=== PATIENT | male | born 1970 | race Two or more races ===

== ENCOUNTER 2017-05-29 20:46 | Emergency (ER) | payer BC ==
[~2017-05-29] VITALS: Ht 185.4 cm; Wt 138.3 kg
[2017-05-29 22:51] LABS: BASO % 0 % (0-3); EOS % 4 % (0-3); HEMATOCRIT 44.5 % (39.0-53.0); HEMOGLOBIN 15.7 g/dL (13.0-17.5); LYMPH # 3.2 x10^3/uL (1.0-4.8); LYMPH % 39 % (24-48); MEAN CORPUSCULAR HEMOGLOBIN 33 pg (25-35); MEAN CORPUSCULAR HGB CONC 35 g/dL (31-37); MEAN CORPUSCULAR VOLUME 94 fL (79-100); MONO % 9 % (0-9); NEUT % 48 % (31-73); PLATELET COUNT 201 x10^3/uL (140-400); RED BLOOD COUNT 4.76 x10^6/uL (4.30-5.70); WHITE BLOOD COUNT 8.1 x10^3/uL (4.0-11.0)
[2017-05-29 23:05] LABS: CALCIUM 9.1 mg/dL (8.5-10.1); CREATININE 0.9 mg/dL (0.7-1.3); GFR 91.7; POTASSIUM 4.5 mmol/L (3.5-5.1)
--- NOTE | 2017-05-30 00:06 | RAD ---
Left lower extremity venous Doppler: Reason for examination: Dropped a tire on his leg with pain and swelling. The left lower extremity venous system was evaluated from the common femoral and greater saphenous veins distally to the calf veins with grayscale imaging, color-flow and spectral analysis. The venous system shows normal blood flow without venous thrombosis. There is normal response of the venous system to compression and augmentation. Note is made of several lymph nodes in the groin measuring up to 3.9 cm in greatest dimension. There is a 3.9 x 1.9 x 2.8 cm popliteal fossa cyst. In the area of clinical concern anterior medially in the proximal lower leg, there is a heterogeneous fluid collection consistent with a hematoma measuring 3.1 x 1.7 x 0.9 cm. IMPRESSION: No deep venous thrombosis in the left lower extremity. Hematoma in the area of clinical concern in the proximal lower leg. 3.9 x 1.9 x 2.8 cm popliteal cyst. Several lymph nodes in the groin. Electronically signed by: Emilee Holder MD (05/30/2017 12:03 AM) [facility]
[2017-05-30 00:15] VITALS: BP 116/58
--- NOTE | 2017-05-30 01:57 | ED.ADGEN ---
Past Medical History Past Medical History: Diabetes-Type II, GERD, High Cholesterol Past Surgical History: Other Additional Past Surgical Histo: circumcision 04/21/2017 Alcohol Use: Rarely Drug Use: None Adult General Chief Complaint Chief Complaint: LOWEREXTREMITY INJURY HPI HPI Patient is a 46 year old man, history of type 2 diabetes mellitus, obesity, high cholesterol, who presents to the emergency department with a complaint of left lower extremity pain and swelling. Patient was referred to the emergency department after evaluation in urgent care, with concern for possible DVT. Patient states he was struck in the leg by a car tire that fell over 2 weeks ago , states that he's noted some swelling and bruising the area since then, and that he noted increased swelling over the last several days. Patient states he is having pain behind his knee, and on the medial aspect of the left lower extremity. Patient states he also feels "just sort of weak and tired sometimes" , states he's been taking his insulin and other medications as directed by his primary care provider and that his sugars are running in the 200s. He denies any fevers or chills, any history of DVT or PE in himself or family members, any shortness of breath or chest pain, any cough, any focal weakness, numbness, tingling other injuries or complaints. He has not taken any medication for pain prior to coming to the ED. Review of Systems Review of Systems Constitutional: Denies fever or chills. [] Eyes: Denies change in visual acuity. [] HENT: Denies nasal congestion or sore throat. [] Respiratory: Denies cough or shortness of breath. [] Cardiovascular: Denies chest pain or edema. [] GI: Denies abdominal pain, nausea, vomiting, bloody stools or diarrhea. [] : Denies dysuria. [] Musculoskeletal: Denies back pain or joint pain. []Complaining of pain in the left lower extremity, with ecchymosis and swelling. Integument: Denies rash. [] Neurologic: Denies headache, focal weakness or sensory changes. [] Endocrine: Denies polyuria or polydipsia. [] Lymphatic: Denies swollen glands. [] Psychiatric: Denies depression or anxiety. [] Allergies Allergies Allergies Coded Allergies Type Severity Reaction Last Updated Verified Penicillins Allergy Unknown 05/29/17 Yes Physical Exam Physical Exam Constitutional: Well developed, well nourished, no acute distress, non-toxic appearance. [] HENT: Normocephalic, atraumatic, bilateral external ears normal, oropharynx moist, no oral exudates, nose normal. [] Eyes: PERRLA, EOMI, conjunctiva normal, no discharge. [] Neck: Normal range of motion, no tenderness, supple, no stridor. [] Cardiovascular:Heart rate regular rhythm, no murmur [] Lungs & Thorax: Bilateral breath sounds clear to auscultation , no wheezing, rhonchi, rales. No chest or crepitus or tenderness.[] Abdomen: Bowel sounds normal, soft, no tenderness, no rebound, rigidity, no guarding, obese, no masses, no pulsatile masses. [] Skin: Warm, dry, no erythema, no rash. [] Back: No tenderness, no CVA tenderness. [] Extremities: Patient with tenderness palpation in the posterior fossa, with mild fullness noted, consistent with possible Reed cyst, patient noted to have area of tenderness to palpation in the medial anterior calf region, with discoloration, consistent with ecchymosis, and chronic venous stasis changes, mild tenderness and fluid collection noted, no evidence of abscess formation or induration,, no cyanosis, no clubbing, ROM intact, no edema. [Right lower extremity is nontender, no edema noted, patient with small non-influent lesions noted consistent with likely insect bites, patient states that "either Crawford might bites", and that he cannot resist "scratching". No evidence of infection. Neurologic: Alert and oriented X 3, normal motor function, normal sensory function, no focal deficits noted. [] Psychologic: Affect normal, judgement normal, mood normal. [] Current Patient Data Vital Signs Vital Signs Date Time Temp Pulse Resp B/P (MAP) Pulse Ox O2 Delivery O2 Flow Rate FiO2 05/30/17 00:15 90 18 116/58 (77) 96 Room Air 05/29/17 21:55 98.3 98.3 Lab Values Laboratory Tests Test 05/29/17 22:40 White Blood Count 8.1 x10^3/uL (4.0-11.0) Red Blood Count 4.76 x10^6/uL (4.30-5.70) Hemoglobin 15.7 g/dL (13.0-17.5) Hematocrit 44.5 % (39.0-53.0) Mean Corpuscular Volume 94 fL (79-100) Mean Corpuscular Hemoglobin 33 pg (25-35) Mean Corpuscular Hemoglobin Concent 35 g/dL (31-37) Red Cell Distribution Width 13.0 % (11.5-14.5) Platelet Count 201 x10^3/uL (140-400) Neutrophils (%) (Auto) 48 % (31-73) Lymphocytes (%) (Auto) 39 % (24-48) Monocytes (%) (Auto) 9 % (0-9) Eosinophils (%) (Auto) 4 % (0-3) H Basophils (%) (Auto) 0 % (0-3) Neutrophils # (Auto) 3.9 x10^3uL (1.8-7.7) Lymphocytes # (Auto) 3.2 x10^3/uL (1.0-4.8) Monocytes # (Auto) 0.7 x10^3/uL (0.0-1.1) Eosinophils # (Auto) 0.3 x10^3/uL (0.0-0.7) Basophils # (Auto) 0.0 x10^3/uL (0.0-0.2) Sodium Level 136 mmol/L (136-145) Potassium Level 4.5 mmol/L (3.5-5.1) Chloride Level 101 mmol/L (98-107) Carbon Dioxide Level 27 mmol/L (21-32) Anion Gap 8 (6-14) Blood Urea Nitrogen 10 mg/dL (8-26) Creatinine 0.9 mg/dL (0.7-1.3) Estimated GFR (Cockcroft-Gault) 91.7 Glucose Level 345 mg/dL (70-99) H Calcium Level 9.1 mg/dL (8.5-10.1) Laboratory Tests 05/29/17 22:40 Laboratory Tests 05/29/17 22:40 EKG EKG Not indicated.[] Radiology/Procedures Radiology/Procedures [][facility] [address] [place], [place] [id number] IMAGING REPORT Signed PATIENT: LISBETH LAY ACCOUNT: [id number] : 1970 LOCATION: ER AGE: 46 SEX: M EXAM STATUS: REG ER ORD. PHYSICIAN: FREDRICK DELGADILLO DO REASON: Swelling/pain s/p injury PROCEDURE: VENOUS LOWER EXTREMITY LEFT Left lower extremity venous Doppler: Reason for examination: Dropped a tire on his leg with pain and swelling. The left lower extremity venous system was evaluated from the common femoral and greater saphenous veins distally to the calf veins with grayscale imaging, color-flow and spectral analysis. The venous system shows normal blood flow without venous thrombosis. There is normal response of the venous system to compression and augmentation. Note is made of several lymph nodes in the groin measuring up to 3.9 cm in greatest dimension. There is a 3.9 x 1.9 x 2.8 cm popliteal fossa cyst. In the area of clinical concern anterior medially in the proximal lower leg, there is a heterogeneous fluid collection consistent with a hematoma measuring 3.1 x 1.7 x 0.9 cm. IMPRESSION: No deep venous thrombosis in the left lower extremity. Hematoma in the area of clinical concern in the proximal lower leg. 3.9 x 1.9 x 2.8 cm popliteal cyst. Several lymph nodes in the groin. Electronically signed by: Emilee Brito MD (05/30/2017 12:03 AM) [facility] DICTATED and SIGNED BY: EMILEE BRITO MD DATE: 05/29/17 0266 CC: [facility]; FREDRICK DELGADILLO DO ~ Course & Med Decision Making Course & Med Decision Making Pertinent Labs and Imaging studies reviewed. (See chart for details) Ultrasound of the left lower extremity order to assess for DVT, this was unremarkable. Patient received basic laboratory studies in the ED based and complaints of generalized fatigue, which revealed hyperglycemia with a glucose of 345, but no left or abnormalities other concerning findings. I did discuss these findings with patient, I believe based on examination he is exhibiting some signs of neuropathy which is more of a chronic condition consistent with his diabetes, which may be causing some of the discomfort that brought to the ED today, additionally he is noted to have a popliteal cyst in the area of discomfort, and evidence of hematoma in the area where he is complaining of discomfort in the anterior and medial aspect of the lower leg. No evidence of concerning findings identified, which was discussed with patient in detail. Patient encouraged to follow-up with his primary care provider for review of his medication regimen and for potential changes in additional assessment as needed, we did discuss concerning symptoms that prompt return to the ED as well. Patient to stay well-hydrated, to continue medications, to follow-up with his PCP, and to return to the ED for any new or worsening symptoms as discussed. Patient discharged home in stable condition with plan and precautions as above. Dragon Disclaimer Dragon Disclaimer This electronic medical record was generated, in whole or in part, using a voice recognition dictation system. Departure Impression: Primary Impression: Left leg pain Additional Impressions: Popliteal cyst Hematoma Hyperglycemia Disposition: 01 HOME, SELF-CARE Condition: IMPROVED Problem Qualifiers FREDRICK DELGADILLO DO May 30, 2017 01:57
== END 2017-05-30 01:09 | disposition home or self-care (01) ==
LOC: ER 20:46
DX: S80.12XA Contusion of left lower leg, initial encounter (principal); M71.22 Synovial cyst of popliteal space [Baker], left knee; E11.65 Type 2 diabetes mellitus with hyperglycemia; K21.9 Gastro-esophageal reflux disease without esophagitis; E78.00 Pure hypercholesterolemia, unspecified; E66.9 Obesity, unspecified; Z79.4 Long term (current) use of insulin; Z88.0 Allergy status to penicillin; Z68.41 Body mass index [BMI] 40.0-44.9, adult; W18.09XA Striking against other object with subsequent fall, initial encounter; Y93.89 Activity, other specified; Y92.89 Other specified places as the place of occurrence of the external cause; Y99.8 Other external cause status
CPT/HCPCS: 36415; 80048; 85025; 93971; 99285-25